=== PATIENT | female | born 1965 | race Caucasian/White ===

== ENCOUNTER 2024-09-29 18:00 | Emergency (ER) | payer MEDICARE, MEDICAID ==
[~2024-09-29] VITALS: Ht 165.1 cm; Wt 71.8 kg
[~2024-09-29 18:00] MED LIST: BACL20TA PO; CLOP75TA34 PO; ESOM40CA49 PO; HYDR-4383 PO; LISI2.5T14 PO; LOP25T PO; LORA10TA7 PO
[2024-09-29 18:01] VITALS: BP 178/89; PULSE 92; RESP 16; O2SAT 100
[2024-09-29] MEDS: LIDOcaine 1% 30ml preserv. free vial IJ STA (19:09)
[2024-09-29 20:12] VITALS: TEMP 97.8
== END 2024-09-29 20:27 | disposition home or self-care (01) ==
LOC: ER 18:00
DX: S52.502A Unspecified fracture of the lower end of left radius, initial encounter for closed fracture (principal); M79.7 Fibromyalgia; G89.29 Other chronic pain; Z98.84 Bariatric surgery status; Z88.7 Allergy status to serum and vaccine; Z91.041 Radiographic dye allergy status; W19.XXXA Unspecified fall, initial encounter; Y93.89 Activity, other specified; Y92.89 Other specified places as the place of occurrence of the external cause; Y99.8 Other external cause status
CPT/HCPCS: 25605; 73100; 73110; 73130; 99284; A4565; A6449

== ENCOUNTER 2025-04-16 08:53 | Emergency (ER) | payer MEDICARE, MEDICAID ==
[~2025-04-16] VITALS: Ht 165.1 cm; Wt 60.7 kg
[~2025-04-16 08:53] MED LIST changes: -BACL20TA PO; -CLOP75TA34 PO; +DOXY150T3 PO; +FOLI0.8T6 PO; -LISI2.5T14 PO; -LOP25T PO; +LORA-835 PO; -LORA10TA7 PO; +VIT C PO; +VIT D3 PO
--- NOTE | 2025-04-16 11:03 | Physician Documentation ---
History of Present Illness ~ Chief Complaint: Extremity Swelling Stated Complaint: CELLULITIS IN LEGS Time Seen by MD: 09:38 Primary Medical Doctor: RADU GARCIAS Mode of Arrival: POV HPI Patient presents with acute on chronic swelling of her left lower extremity. She is convinced that she is reoccurrence cellulitis in her left leg. She is currently on doxycycline Tetanus witin 5 years: No Medication Reconciliation Allergies: Coded Allergies: iodine (Verified Allergy, Intermediate, RASH, 04/16/25) Tetanus Vaccines and Toxoid (Verified Allergy, Unknown, 04/16/25) Uncoded Allergies: TAPE (Allergy, Intermediate, BLISTERING, 08/10/11) Scheduled Doxycycline Monohydrate (Doxycycline), 1 TAB PO Q12H, (Reported) Esomeprazole Magnesium (Nexium), 1 CAP PO DAILY, (Reported) Loratadine/Pseudoephedrine (Claritin-D 24 Hour Tablet), 1 TAB PO HS, (Reported) Vit B Complx C/Folic Acid/Zinc (Dialyvite 800-Zinc 50 mg Tab), 1 TAB PO DAILY, (Reported) [Vit C], 500 MG PO HS, (Reported) [Vit D3], 1,000 UNITS PO HS, (Reported) Scheduled PRN Hydrocodone/Acetaminophen ([place] 5-325 Tablet), 1 TABLET PO QID PRN for moderate or severe pain, (Reported) Past Medical History Past Medical History: Valve Insuffciency, Chronic Pain, Fibromyalgia, MRSA Abscess Past Surgical History: gastric bypass Patient History: Patient reports no known family medical history. Alcohol Use: None Drug Use: none Lives In: Home Review of Systems Constitutional: Denies: fever Physical Exam Vital Signs: Temperature: 98.5, Source: Oral, Heart Rate: 67, Respiratory Rate: 15, BP: 145/71, Pulse Oximetry: 100, Weight: 60.700 Oxygen Flow Rate: 0 Physical Exam Well-appearing no distress Left lower extremity chronic nonhealing wound. Faint erythema distal lower leg. No posterior swelling or tenderness Progress Progress Note Reviewed discharge summary February 24 2025-left lower extremity nonhealing wo unds left lower extremity cellulitis bilateral lower extremity chronic venous insufficiency History of gastric bypass, chronic venous insufficiency, former heavy smoker Followed by infectious disease for left ankle wound Consulted Dr. Solomon at 11:30 a.m. he agrees with plan for discharge with Keflex Results/Orders Reviewed/noted all lab results: Yes Results/Orders Vital Signs 04/16/25 04/16/25 04/16/25 08:57 09:57 09:57 Temp 98.5 98.5 Pulse 73 67 Resp 16 15 15 B/P (MAP) 142/54 145/71 (95) Pulse Ox 100 100 O2 Flow Rate 0 0 Medical Decision Making Additional info obtained from: old records Foot Diff Dx:Considerations: Include: Abrasion, Cellulitis Additional Comment DVT Departure Disposition: HOME / SELF CARE / HOMELESS Impression: Primary Impression: Wound cellulitis Additional Instructions: I discussed your case with Dr. Solomon we will start you on a different antibiotic. Follow up with him in the next few weeks and return if you develop fever or worsening redness Referrals: NO PRIMARY CARE PROVIDER (PCP) Prescriptions Cephalexin (Cephalexin) 500 Mg Capsule 1 CAP PO Q6H for 7 Days, #28 CAP Prov: CHELSIE BRUSH MD 04/16/25 Signature Scribe Signature: na Attestation: CHELSIE Nieto MD Apr 16, 2025 11:03
[2025-04-16] MEDS ORDERED: CEPH500C81 PO (11:40)
[2025-04-16 11:51] VITALS: BP 132/68; PULSE 73; RESP 15; TEMP 98.5; O2SAT 100
== END 2025-04-16 11:54 | disposition home or self-care (01) ==
LOC: ER 08:54
DX: L03.116 Cellulitis of left lower limb (principal); M79.7 Fibromyalgia; Z88.7 Allergy status to serum and vaccine; Z88.8 Allergy status to other drugs, medicaments and biological substances; Z91.041 Radiographic dye allergy status; Z98.84 Bariatric surgery status
CPT/HCPCS: 99283

== ENCOUNTER 2025-07-13 17:42 | Emergency (ER) | payer MEDICARE, MEDICAID ==
[~2025-07-13] VITALS: Ht 165.1 cm; Wt 63.5 kg
[2025-07-13 17:57] VITALS: BP 176/66; PULSE 87; RESP 17; O2SAT 100
--- NOTE | 2025-07-13 18:05 | Physician Documentation ---
History of Present Illness ~ Chief Complaint: Laceration Stated Complaint: FALL Time Seen by MD: 18:38 Primary Medical Doctor: RADU [facility] This is a 60-year-old female who presents with laceration to left scalp after a ground level trip and fall causing her to strike the left side of her head. Patient reports she is not on blood thinners and reports no loss of co nsciousness. Tetanus Within 5 Years: No Medication Reconciliation Allergies: Coded Allergies: iodine (Verified Allergy, Intermediate, RASH, 07/13/25) Tetanus Vaccines and Toxoid (Verified Allergy, Unknown, 07/13/25) Uncoded Allergies: TAPE (Allergy, Intermediate, BLISTERING, 08/10/11) Scheduled Doxycycline Monohydrate (Doxycycline), 1 TAB PO Q12H, (Reported) Esomeprazole Magnesium (Nexium), 1 CAP PO DAILY, (Reported) Loratadine/Pseudoephedrine (Claritin-D 24 Hour Tablet), 1 TAB PO HS, (Reported) Vit B Complx C/Folic Acid/Zinc (Dialyvite 800-Zinc 50 mg Tab), 1 TAB PO DAILY, (Reported) [Vit C], 500 MG PO HS, (Reported) [Vit D3], 1,000 UNITS PO HS, (Reported) Scheduled PRN Hydrocodone/Acetaminophen ([place] 5-325 Tablet), 1 TABLET PO QID PRN for moderate or severe pain, (Reported) Past Medical History Past Medical History: Valve Insuffciency, Chronic Pain, Fibromyalgia, MRSA Abscess Past Surgical History: gastric bypass Patient History: Patient reports no known family medical history. Alcohol Use: None Drug Use: none Lives In: Home Review of Systems ROS As stated above in the HPI, otherwise all systems are reviewed and negative. Physical Exam Vital Signs: Temperature: 98.4, Heart Rate: 87, Respiratory Rate: 17, BP: 176/66, Pulse Oximetry: 100, Weight: 63.500 Oxygen Flow Rate: 0 Physical Exam VITALS: Reviewed and as above. GENERAL: Alert, nontoxic appearing, no apparent distress. HEENT: PERRLA, EOMI RESPIRATORY: No increased work of breathing, no respiratory distress, speaking in full clear sentences SKIN: Left lateral scalp 2 cm laceration no galeal involvement Procedures Laceration/Wound Repair Laceration : Location: Left lateral scalp Length (cm): 2 Anesthesia: Lidocaine w/ Epi Volume Anesthetic (mls): 8 Prep: irrigated by nurse Undermining: none Margins: revised Foreign Body: not identified Repaired: skin Wound Repaired With: sierra Number of Superficial Sutures: 6 Layer Closure?: No Splint Applied?: No Sling Applied?: No Tolerated Procedure Well?: yes, no complications Progress Results/Orders Results/Orders Orders - DAINA VEE Laceration/I&D Tray Set Up (07/13/25 18:42) Wound Care Orders (07/13/25 18:42) Completed Orders - DAINA VEE Lidocaine 1% W/Epi 1:100,000 (Xylocaine (07/13/25 18:45) Vital Signs 07/13/25 07/13/25 17:57 20:12 Temp 98.4 98.4 Pulse 87 Resp 17 B/P (MAP) 176/66 Pulse Ox 100 O2 Flow Rate 0 Medical Decision Making Findings MSE performed in triage and patient returned to ED lobby by nursing staff to await available ED room This 60-year-old female presented with a laceration to the left scalp after the ground level trip and fall that caused her to fall and strike the left side her head, patient is not on blood thinners and did not have loss of consciousness. The wound did not involve the galea on physical exam there was no evidence of retained for foreign body. Patient was well appearing, physical exam was otherwise benign,and it is reassuring. patient did not have any confusion, behavioral changes, or persistent vomiting, to suggest intracranial hemorrhage. The wound was thoroughly irrigated by nursing staff, the wound was well approximated utilizing skin sierra without complication. The patient was provided homecare instructions, follow up instructions, in return to care precautions which she verbalized understanding of. Differential Dx:Considerations: Include: Abrasion, Contusion, Fracture, Hematoma, Retained foreign body Departure Time of Disposition: 19:35 Disposition: 01 HOME / SELF CARE / HOMELESS Impression: Primary Impression: Laceration Condition: Improved Discharge Instructions: Laceration Care, Adult, [id number] Additional Instructions: Keep the area clean and dry, you may wash the area gently but do not submerge the wound or soak it. Please return to your choice of medical provider including emergency department in seven days for staple removal. Please follow up with your primary care provider in the next few days. Please return to the emergency department for any new or worsening concerning symptoms including but not limited to increased pain and swelling to the area, confusion, persistent vomiting, or if you develop a fever over 100.4 that does not lower with ibuprofen or Tylenol Referrals: NO PRIMARY CARE PROVIDER (PCP) Education Educated: Patient Educated regarding: diagnosis, treatment, prognosis, need for follow up Signature Scribe Signature: No Scribe Attestation: The note accurately reflects work and decisions made by me.NEWTON Boyce 07/15/25 17:21 DAINA VEE Jul 13, 2025 18:05
[2025-07-13] MEDS: LIDOcaine 1% W/epiNEPHrine 1:100,000 20ml vial IJ ONE (18:48)
[2025-07-13 20:12] VITALS: TEMP 98.4
== END 2025-07-13 20:13 | disposition home or self-care (01) ==
LOC: ER 17:43
DX: S01.01XA Laceration without foreign body of scalp, initial encounter (principal); M79.7 Fibromyalgia; Z88.7 Allergy status to serum and vaccine; Z88.8 Allergy status to other drugs, medicaments and biological substances; Z98.84 Bariatric surgery status; W01.10XA Fall on same level from slipping, tripping and stumbling with subsequent striking against unspecified object, initial encounter; Y93.89 Activity, other specified; Y92.89 Other specified places as the place of occurrence of the external cause; Y99.8 Other external cause status
CPT/HCPCS: 12001; 99284; A6402; Z7610; A6449